=== PATIENT | female | born 1975 | race African-American/Black ===

== ENCOUNTER 2020-05-30 08:43 | Inpatient (IN) ==
[2020-05-30 09:22] LABS: Basophils # 0.1 10*3/uL (0.0-0.2); Basophils % 0.6 % (0.0-0.8); Eosinophils # 0.4 10*3/uL (0.0-0.87); Eosinophils % 4.4 % (0.00-10.9); Hematocrit 41.1 VOL% (35.7-47.0); Hemoglobin 13.6 GM/DL (12.0-16.0); Immature Granulocytes % 0.4 %; Immature Granulocytes Absolute 0.03 #; Lymphocytes # 1.5 10*3/uL (1.4-4.0); Lymphocytes % 18.3 % (21.3-54.2); Mean Corpuscular HGB Conc 33.1 GM/DL (32-36); Mean Corpuscular Volume 88.2 FL (87-102); Mean Platelet Volume 10.6 FL (9.6-12.0); Monocytes % 7.8 % (1.7-12.7); Neutrophils % 68.5 % (38.7-73.9); Platelet Count 366 T/CUMM (130-400); Red Blood Count 4.66 MC/CUMM (3.8-5.5); Red Cell Distribution Width 14.8 % (9.3-17.3)
[2020-05-30 09:47] LABS: Alanine Aminotransferase 23 U/L (13-56); Albumin 3.2 G/DL (3.4-5.0); Alkaline Phosphatase 106 U/L (45-117); Aspartate Amino Transferase 20 U/L (0-37); Bilirubin,Total < 0.39 MG/DL (0.2-1.0); Blood Urea Nitrogen 8 MG/DL (7-18); Calcium 9.1 MG/DL (8.5-10.1); Estimated Glom Filtration Rate 145 ML/MIN; Glucose 128 MG/DL (74-106); Osmolality,Calculated 276.5 MOS/KG (273-304); Total Protein 7.9 G/DL (6.4-8.3); Uric Acid 6.2 MG/DL (2.6-6.0)
[2020-05-30] MEDS ORDERED: HYDROmorphone 2 MG/1 ML VIAL IV STA (09:49)
[2020-05-30] MEDS ORDERED: ONDANSETRON 4 MG/2 ML VIAL IV STA (09:49)
[2020-05-30 10:32] LABS: Sedimentation Rate-Westergren 23 MM/HR (0-20)
[2020-05-30] MEDS ORDERED: MIDAZOLAM 2 MG/2 ML VIAL IV ONE (11:50)
[2020-05-30] MEDS ORDERED: fentaNYL 100 MCG/2 ML VIAL IV ONE (11:50)
[2020-05-30] MEDS ORDERED: ceFAZolin 1,000 MG in SYRINGE 1 EACH IV ONE (11:50)
[2020-05-30] MEDS ORDERED: HEPARIN/NACL 0.9% 2 UNITS/ML 2,000 ML IV ONE (12:30)
[2020-05-30] MEDS ORDERED: hydrALAZINE 20 MG/1 ML VIAL IV STA (13:02)
[2020-05-30] MEDS ORDERED: GLUCAGON 1 MG VIAL IM PRN (13:19)
[2020-05-30] MEDS ORDERED: ACETAMINOPHEN 325 MG TABLET PO PRN (13:19)
[2020-05-30] MEDS ORDERED: DEXTROSE 50% 25 GM/50 ML VIAL IV PRN (13:19)
[2020-05-30] MEDS ORDERED: DOCUSATE SODIUM 100 MG CAPSULE PO PRN (13:19)
[2020-05-30] MEDS ORDERED: NICOTINE 21 MG/24 HR PATCH TRANSDERM PRN (13:19)
[2020-05-30] MEDS ORDERED: PROPRANOLOL 20 MG TABLET PO PRN (13:23)
[2020-05-30 13:38] LABS: Bilirubin,Urine Negative (Negative); Blood, Urine Negative (Negative); Glucose,Urine (UA) Negative (Negative); Ketones,Urine Negative (Negative); Mucus,Urine Occasional /LPF (Occasional); Nitrite,Urine Negative (Negative); Protein,Urine Negative; RBC,Urine 1 /HPF (0-4); Squamous Epithelial Cell,Urine Occasional /HPF (0-10); Urine Appearance CLEAR (Clear); Urine Color Yellow (Yellow); Urine Specific Gravity > 1.060 (1.001-1.035); Urine Urobilinogen < 2.0 EU/DL (0.2-1.0); WBC,Urine <1 /HPF (0-6)
[2020-05-30] MEDS: hydrALAZINE 20 MG/1 ML VIAL IV PRN (13:45)
[2020-05-30] MEDS ORDERED: HEPARIN 1,000 UNIT/1 ML VIAL ONE (13:55)
[2020-05-30] MEDS ORDERED: HEPARIN 5,000 UNIT/1 ML VIAL ONE (13:56)
[2020-05-30] MEDS ORDERED: HEPARIN 1,000 UNIT/1 ML VIAL IV PRN (14:01)
[2020-05-30] MEDS ORDERED: ALTEPLASE 2 MG VIAL ONE (14:22)
[2020-05-30] MEDS: HYDROmorphone 2 MG/1 ML VIAL IV PRN ×6 (14:30→23:40)
[2020-05-30] MEDS ORDERED: hydrALAZINE 20 MG/1 ML VIAL IV ONE ×2 (14:57→15:41)
[2020-05-30] MEDS ORDERED: NITROGLYCERIN DRIP 50 MG/250 ML BOTTLE IV ONE (15:25)
[2020-05-30] MEDS ORDERED: ONDANSETRON 4 MG/2 ML VIAL IV PRN (15:29)
[2020-05-30] MEDS ORDERED: SODIUM CHLORIDE 0.45% 1,000 ML IV SCH (15:30)
[2020-05-30] MEDS ORDERED: ALTEPLASE 24 MG in SODIUM CHLORIDE 0.9% 480 ML INTRAARTER SCH (15:30)
[2020-05-30 16:44] LABS: Barbiturates Screen,Urine Negative (Negative); Benzodiazepines Screen,Urine Negative (Negative); Cannabinoid Screen,Urine Negative (Negative); Opiate Screen,Urine Positive (Negative); Phencyclidine Screen,Urine Negative (Negative)
[2020-05-30] MEDS: LACTATED RINGERS 1,000 ML IV SCH (16:45)
[2020-05-30] MEDS: HEPARIN DRIP 25,000 UNITS/500 ML PREMIX IV SCH (16:56)
[2020-05-30] MEDS: SODIUM CHLORIDE 0.45% 1,000 ML IV SCH ×2 (17:00→17:01)
[2020-05-30] MEDS: hydrALAZINE 20 MG/1 ML VIAL IV SCH ×3 (17:01→21:29)
[2020-05-30 17:10] LABS: INR 1.1; PT Patient Result 11.5 SECS (9.8-11.9); Partial Thromboplastin Time 29.3 SECS (23.9-33.8)
[2020-05-30] MEDS: cloNIDine 0.3 MG/24 HR PATCH TRANSDERM SCH (18:00)
[2020-05-30] MEDS ORDERED: LORazepam 1 MG TABLET PO PRN (18:34)
[2020-05-30] MEDS: niCARdipine INJ 25 MG in SODIUM CHLORIDE 0.9% 240 ML IV PRN ×3 (18:40→23:36)
[2020-05-30] MEDS: niCARdipine INJ 50 MG in SODIUM CHLORIDE 0.9% 480 ML IV PRN (23:39)
[2020-05-31] MEDS: ONDANSETRON 4 MG/2 ML VIAL IV PRN ×2 (02:44→21:20)
[2020-05-31] MEDS: HYDROmorphone 2 MG/1 ML VIAL IV PRN ×7 (02:44→21:46)
[2020-05-31] MEDS: niCARdipine INJ 50 MG in SODIUM CHLORIDE 0.9% 480 ML IV PRN ×4 (03:00→14:35)
[2020-05-31 03:49] LABS: Basophils % 0.1 % (0.0-0.8); Eosinophils % 0.1 % (0.00-10.9); Hematocrit 34.9 VOL% (35.7-47.0); Hemoglobin 11.6 GM/DL (12.0-16.0); Immature Granulocytes % 0.4 %; Immature Granulocytes Absolute 0.07 #; Lymphocytes # 0.8 10*3/uL (1.4-4.0); Lymphocytes % 5.2 % (21.3-54.2); Mean Corpuscular HGB Conc 33.2 GM/DL (32-36); Mean Corpuscular Volume 89.5 FL (87-102); Mean Platelet Volume 10.4 FL (9.6-12.0); Monocytes % 3.8 % (1.7-12.7); Neutrophils % 90.4 % (38.7-73.9); Platelet Count 274 T/CUMM (130-400); White Blood Count 15.6 T/CUMM (4-12)
[2020-05-31 03:59] LABS: INR 1.1; PT Patient Result 11.7 SECS (9.8-11.9); Partial Thromboplastin Time 30.5 SECS (23.9-33.8)
[2020-05-31 04:17] LABS: Calcium 8.5 MG/DL (8.5-10.1); Osmolality,Calculated 265.4 MOS/KG (273-304)
[2020-05-31 04:27] LABS: Calcium 8.4 MG/DL (8.5-10.1); Osmolality,Calculated 269.1 MOS/KG (273-304); Risk Ratio 5.83; Thyroid Stimulating Hormone 1.4 uIU/ml (0.358-3.74); VLDL CHOLESTEROL 38.2 MG/DL
[2020-05-31] MEDS: hydrALAZINE 20 MG/1 ML VIAL IV SCH ×4 (05:41→21:46)
[2020-05-31] MEDS: LACTATED RINGERS 1,000 ML IV SCH (05:43)
[2020-05-31] MEDS: THIAMINE 100 MG TABLET PO SCH (09:11)
[2020-05-31] MEDS: FOLIC ACID 1 MG TABLET PO SCH (09:11)
[2020-05-31] MEDS: carvediloL 6.25 MG TABLET PO SCH ×2 (09:58→21:22)
[2020-05-31] MEDS: SODIUM CHLORIDE 0.45% 1,000 ML IV SCH ×2 (13:24)
[2020-05-31] MEDS ORDERED: VANCOMYCIN INJ 1,000 MG in SODIUM CHLORIDE 0.9% 250 ML IV ONE (13:59)
[2020-05-31] MEDS: HEPARIN DRIP 25,000 UNITS/500 ML PREMIX IV SCH ×2 (14:04→17:38)
[2020-05-31] MEDS ORDERED: THROMBIN TOPICAL (RECOMBINANT) 5,000 UNIT VIAL TOP ONE (14:16)
[2020-05-31] MEDS ORDERED: HEPARIN 5,000 UNIT/1 ML VIAL ONE (14:17)
[2020-05-31] MEDS ORDERED: VANCOMYCIN 500 MG VIAL ONE (14:17)
[2020-05-31] MEDS ORDERED: TISSUE ADHESIVE 1 EACH APPLICATOR TOP ONE (15:39)
[2020-05-31] MEDS ORDERED: HYDROmorphone 2 MG/1 ML VIAL IV PRN (16:01)
[2020-05-31] MEDS ORDERED: LIDOCAINE 2% 5 ML VIAL ONE (16:10)
[2020-05-31] MEDS ORDERED: propofoL 200 MG/20 ML VIAL IV ONE (16:10)
[2020-05-31] MEDS ORDERED: PHENYLEPHRINE 1 MG/10 ML SYRINGE IV ONE (16:11)
[2020-05-31] MEDS ORDERED: HEPARIN 10,000 UNIT/10 ML VIAL ONE (16:11)
[2020-05-31] MEDS ORDERED: PHENYLEPHRINE 10 MG/1 ML VIAL IV ONE (16:11)
[2020-05-31] MEDS ORDERED: GLYCOPYRROLATE 0.4 MG/2 ML VIAL ONE (16:11)
[2020-05-31] MEDS ORDERED: SUCCINYLCHOLINE 200 MG/10 ML VIAL ONE (16:11)
[2020-05-31] MEDS ORDERED: SEVOFLURANE 1 UNIT/15 MINUTE INH ONE (16:11)
[2020-05-31] MEDS ORDERED: ONDANSETRON 4 MG/2 ML VIAL ONE (16:11)
[2020-05-31] MEDS ORDERED: MIDAZOLAM 2 MG/2 ML VIAL ONE (16:11)
[2020-05-31] MEDS ORDERED: fentaNYL 250 MCG/5 ML VIAL ONE (16:11)
[2020-05-31] MEDS ORDERED: ROCURONIUM 100 MG/10 ML VIAL IV ONE (16:12)
[2020-05-31] MEDS ORDERED: SODIUM CHLORIDE 0.9% 500 ML IV ONE (16:12)
[2020-05-31] MEDS ORDERED: SODIUM CHLORIDE 0.9% 100 ML IV ONE (16:12)
[2020-05-31] MEDS ORDERED: ONDANSETRON 4 MG/2 ML VIAL IV PRN (16:35)
[2020-05-31] MEDS: CLOPIDOGREL 75 MG TABLET PO SCH (17:33)
[2020-05-31] MEDS: ASPIRIN EC 81 MG TABLET PO SCH (17:33)
[2020-05-31 19:14] LABS: Partial Thromboplastin Time 21.1 SECS (23.9-33.8)
[2020-05-31] MEDS ORDERED: KETOROLAC 30 MG/1 ML VIAL IV ONE (20:41)
[2020-06-01] MEDS: HYDROmorphone 2 MG/1 ML VIAL IV PRN ×8 (00:15→23:20)
[2020-06-01] MEDS: ONDANSETRON 4 MG/2 ML VIAL IV PRN (02:30)
[2020-06-01] MEDS: hydrALAZINE 20 MG/1 ML VIAL IV SCH ×2 (04:04→10:38)
[2020-06-01 04:59] LABS: Basophils % 0.3 % (0.0-0.8); Eosinophils # 0.1 10*3/uL (0.0-0.87); Eosinophils % 0.5 % (0.00-10.9); Hematocrit 28.7 VOL% (35.7-47.0); Hemoglobin 9.8 GM/DL (12.0-16.0); Immature Granulocytes % 0.3 %; Immature Granulocytes Absolute 0.04 #; Lymphocytes # 0.9 10*3/uL (1.4-4.0); Lymphocytes % 7.6 % (21.3-54.2); Mean Corpuscular HGB Conc 34.1 GM/DL (32-36); Mean Corpuscular Volume 91.4 FL (87-102); Mean Platelet Volume 10.8 FL (9.6-12.0); Monocytes % 7.4 % (1.7-12.7); Neutrophils % 83.9 % (38.7-73.9); Platelet Count 223 T/CUMM (130-400); Red Blood Count 3.14 MC/CUMM (3.8-5.5); Red Cell Distribution Width 15.2 % (9.3-17.3); White Blood Count 11.6 T/CUMM (4-12)
[2020-06-01 05:07] LABS: Osmolality,Calculated 268.1 MOS/KG (273-304)
[2020-06-01 05:14] LABS: Partial Thromboplastin Time 27.9 SECS (23.9-33.8)
[2020-06-01] MEDS ORDERED: HYDROmorphone 2 MG/1 ML VIAL IV ONE (10:26)
[2020-06-01] MEDS: ASPIRIN EC 81 MG TABLET PO SCH (10:33)
[2020-06-01] MEDS: THIAMINE 100 MG TABLET PO SCH (10:33)
[2020-06-01] MEDS: carvediloL 6.25 MG TABLET PO SCH ×2 (10:33→21:12)
[2020-06-01] MEDS: CLOPIDOGREL 75 MG TABLET PO SCH (10:33)
[2020-06-01] MEDS: FOLIC ACID 1 MG TABLET PO SCH (10:33)
[2020-06-01] MEDS: PREGABALIN 50 MG CAPSULE PO SCH ×2 (10:34→21:13)
[2020-06-01] MEDS: ENOXAPARIN 60 MG/0.6 ML SYRINGE SUBCUT SCH (11:36)
[2020-06-01] MEDS: POTASSIUM CHLORIDE 20 MEQ TABLET PO PRN (15:25)
[2020-06-01 16:17] LABS: Partial Thromboplastin Time 29.1 SECS (23.9-33.8)
[2020-06-01] MEDS: INSULIN REGULAR 100 UNIT/ML SUBCUT SCH ×2 (17:53→21:20)
[2020-06-01] MEDS: POTASSIUM CHLORIDE 20 MEQ TABLET PO SCH (17:54)
[2020-06-02] MEDS: HYDROmorphone 2 MG/1 ML VIAL IV PRN ×6 (01:18→19:52)
[2020-06-02] MEDS: POTASSIUM CHLORIDE 20 MEQ TABLET PO PRN ×3 (01:53→05:25)
[2020-06-02 07:11] LABS: Basophils % 0.4 % (0.0-0.8); Eosinophils # 0.1 10*3/uL (0.0-0.87); Eosinophils % 1.4 % (0.00-10.9); Hematocrit 27.7 VOL% (35.7-47.0); Hemoglobin 9.3 GM/DL (12.0-16.0); Immature Granulocytes % 0.5 %; Immature Granulocytes Absolute 0.05 #; Lymphocytes % 10.9 % (21.3-54.2); Mean Corpuscular HGB Conc 33.6 GM/DL (32-36); Mean Corpuscular Volume 88.5 FL (87-102); Mean Platelet Volume 10.6 FL (9.6-12.0); Monocytes % 10.5 % (1.7-12.7); Neutrophils % 76.3 % (38.7-73.9); Platelet Count 229 T/CUMM (130-400); Red Blood Count 3.13 MC/CUMM (3.8-5.5); Red Cell Distribution Width 15.1 % (9.3-17.3); White Blood Count 9.1 T/CUMM (4-12)
[2020-06-02 07:20] LABS: Calcium 8.5 MG/DL (8.5-10.1); Osmolality,Calculated 267.1 MOS/KG (273-304)
[2020-06-02] MEDS: ASPIRIN EC 81 MG TABLET PO SCH (09:01)
[2020-06-02] MEDS: POTASSIUM CHLORIDE 20 MEQ TABLET PO SCH (09:01)
[2020-06-02] MEDS: FOLIC ACID 1 MG TABLET PO SCH (09:01)
[2020-06-02] MEDS: THIAMINE 100 MG TABLET PO SCH (09:01)
[2020-06-02] MEDS: PREGABALIN 50 MG CAPSULE PO SCH ×2 (09:01→21:50)
[2020-06-02] MEDS: carvediloL 6.25 MG TABLET PO SCH ×2 (09:01→21:51)
[2020-06-02] MEDS: INSULIN REGULAR 100 UNIT/ML SUBCUT SCH ×4 (09:02→21:52)
[2020-06-02] MEDS: ENOXAPARIN 60 MG/0.6 ML SYRINGE SUBCUT SCH (11:53)
[2020-06-02] MEDS: KETOROLAC 10 MG TABLET PO PRN (12:34)
[2020-06-02] MEDS: NICOTINE 21 MG/24 HR PATCH TRANSDERM SCH (16:08)
[2020-06-02] MEDS: SENNA 8.6 MG TABLET PO SCH (21:51)
[2020-06-02] MEDS: DOCUSATE SODIUM 100 MG CAPSULE PO SCH (21:51)
[2020-06-02] MEDS: POLYETHYLENE GLYCOL POWDER 17 GM PACK PO SCH (21:52)
[2020-06-02] MEDS: buPROPion SR 100 MG TABLET PO SCH (21:53)
[2020-06-03] MEDS: HYDROmorphone 2 MG/1 ML VIAL IV PRN ×5 (01:17→19:47)
[2020-06-03 06:10] LABS: Basophils # 0.1 10*3/uL (0.0-0.2); Basophils % 0.4 % (0.0-0.8); Eosinophils # 0.4 10*3/uL (0.0-0.87); Eosinophils % 3.1 % (0.00-10.9); Hematocrit 29.2 VOL% (35.7-47.0); Hemoglobin 9.6 GM/DL (12.0-16.0); Immature Granulocytes % 0.7 %; Immature Granulocytes Absolute 0.08 #; Lymphocytes # 1.1 10*3/uL (1.4-4.0); Lymphocytes % 9.2 % (21.3-54.2); Mean Corpuscular HGB Conc 32.9 GM/DL (32-36); Mean Platelet Volume 10.9 FL (9.6-12.0); Monocytes % 10.4 % (1.7-12.7); Neutrophils % 76.2 % (38.7-73.9); Platelet Count 258 T/CUMM (130-400); Red Blood Count 3.21 MC/CUMM (3.8-5.5); White Blood Count 11.6 T/CUMM (4-12)
[2020-06-03 06:33] LABS: Calcium 8.5 MG/DL (8.5-10.1); Osmolality,Calculated 265.4 MOS/KG (273-304)
[2020-06-03] MEDS: NICOTINE 21 MG/24 HR PATCH TRANSDERM SCH (09:24)
[2020-06-03] MEDS: THIAMINE 100 MG TABLET PO SCH (09:25)
[2020-06-03] MEDS: carvediloL 6.25 MG TABLET PO SCH ×2 (09:25→21:41)
[2020-06-03] MEDS: FOLIC ACID 1 MG TABLET PO SCH (09:25)
[2020-06-03] MEDS: POTASSIUM CHLORIDE 20 MEQ TABLET PO SCH (09:25)
[2020-06-03] MEDS: ASPIRIN EC 81 MG TABLET PO SCH (09:25)
[2020-06-03] MEDS: POLYETHYLENE GLYCOL POWDER 17 GM PACK PO SCH ×3 (09:25→21:40)
[2020-06-03] MEDS: DOCUSATE SODIUM 100 MG CAPSULE PO SCH ×2 (09:25→21:41)
[2020-06-03] MEDS: KETOROLAC 10 MG TABLET PO PRN (09:41)
[2020-06-03] MEDS: buPROPion SR 100 MG TABLET PO SCH ×2 (09:41→21:43)
[2020-06-03] MEDS: INSULIN REGULAR 100 UNIT/ML SUBCUT SCH ×4 (09:42→22:24)
[2020-06-03] MEDS: PREGABALIN 50 MG CAPSULE PO SCH ×2 (10:00→21:53)
[2020-06-03] MEDS: LINACLOTIDE 145 MCG CAPSULE PO SCH (10:01)
[2020-06-03] MEDS: ENOXAPARIN 60 MG/0.6 ML SYRINGE SUBCUT SCH (14:15)
[2020-06-03] MEDS: ALPRAZolam 0.25 MG TABLET PO PRN (14:16)
[2020-06-03] MEDS: oxyCODONE/ACETAMINOPHEN 5-325 MG TABLET PO PRN ×2 (16:05→21:53)
[2020-06-03] MEDS: cilostazoL 50 MG TABLET PO SCH (21:41)
[2020-06-03] MEDS: SENNA 8.6 MG TABLET PO SCH (21:41)
[2020-06-03] MEDS: APIXABAN 5 MG TABLET PO SCH (21:41)
[2020-06-03] MEDS: LACTULOSE 20 GM/30 ML UDCUP PO SCH (21:41)
[2020-06-04] MEDS: HYDROmorphone 2 MG/1 ML VIAL IV PRN ×4 (00:48→21:10)
[2020-06-04 06:03] LABS: Basophils # 0.1 10*3/uL (0.0-0.2); Basophils % 0.4 % (0.0-0.8); Eosinophils # 0.5 10*3/uL (0.0-0.87); Eosinophils % 3.9 % (0.00-10.9); Hematocrit 27.1 VOL% (35.7-47.0); Hemoglobin 8.9 GM/DL (12.0-16.0); Immature Granulocytes % 0.6 %; Immature Granulocytes Absolute 0.07 #; Lymphocytes # 1.4 10*3/uL (1.4-4.0); Lymphocytes % 11.4 % (21.3-54.2); Mean Corpuscular HGB Conc 32.8 GM/DL (32-36); Mean Corpuscular Volume 90.6 FL (87-102); Monocytes % 11.6 % (1.7-12.7); Neutrophils % 72.1 % (38.7-73.9); Platelet Count 290 T/CUMM (130-400); Red Blood Count 2.99 MC/CUMM (3.8-5.5); Red Cell Distribution Width 15.2 % (9.3-17.3); White Blood Count 12.4 T/CUMM (4-12)
[2020-06-04 06:21] LABS: Calcium 8.7 MG/DL (8.5-10.1); Osmolality,Calculated 266.2 MOS/KG (273-304)
[2020-06-04 09:36] LABS: Metanephrine, Free 0.92 nmol/L (<0.50); Normetanephrine, Free 2.3 nmol/L (<0.90)
[2020-06-04] MEDS: NICOTINE 21 MG/24 HR PATCH TRANSDERM SCH (09:45)
[2020-06-04] MEDS: POLYETHYLENE GLYCOL POWDER 17 GM PACK PO SCH ×3 (09:45→21:15)
[2020-06-04] MEDS: PREGABALIN 50 MG CAPSULE PO SCH ×2 (09:46→21:13)
[2020-06-04] MEDS: APIXABAN 5 MG TABLET PO SCH ×2 (09:46→21:13)
[2020-06-04] MEDS: ASPIRIN EC 81 MG TABLET PO SCH (09:46)
[2020-06-04] MEDS: POTASSIUM CHLORIDE 20 MEQ TABLET PO SCH (09:46)
[2020-06-04] MEDS: carvediloL 6.25 MG TABLET PO SCH ×2 (09:46→21:14)
[2020-06-04] MEDS: cilostazoL 50 MG TABLET PO SCH ×2 (09:46→21:14)
[2020-06-04] MEDS: LACTULOSE 20 GM/30 ML UDCUP PO SCH ×3 (09:47→21:14)
[2020-06-04] MEDS: DOCUSATE SODIUM 100 MG CAPSULE PO SCH ×2 (09:47→21:14)
[2020-06-04] MEDS: LINACLOTIDE 145 MCG CAPSULE PO SCH (09:48)
[2020-06-04] MEDS: INSULIN REGULAR 100 UNIT/ML SUBCUT SCH ×4 (09:48→21:14)
[2020-06-04] MEDS: buPROPion SR 100 MG TABLET PO SCH ×2 (11:55→21:13)
[2020-06-04] MEDS: FOLIC ACID 1 MG TABLET PO SCH (11:55)
[2020-06-04] MEDS: THIAMINE 100 MG TABLET PO SCH (11:55)
[2020-06-04] MEDS: ALPRAZolam 0.25 MG TABLET PO PRN (11:55)
[2020-06-04] MEDS: oxyCODONE/ACETAMINOPHEN 5-325 MG TABLET PO PRN (17:50)
[2020-06-04] MEDS: SENNA 8.6 MG TABLET PO SCH (21:15)
[2020-06-05] MEDS: oxyCODONE/ACETAMINOPHEN 5-325 MG TABLET PO PRN ×6 (03:01→23:05)
[2020-06-05 05:32] LABS: Basophils # 0.1 10*3/uL (0.0-0.2); Basophils % 0.4 % (0.0-0.8); Eosinophils # 0.4 10*3/uL (0.0-0.87); Eosinophils % 3.1 % (0.00-10.9); Hematocrit 23.9 VOL% (35.7-47.0); Immature Granulocytes % 0.9 %; Immature Granulocytes Absolute 0.11 #; Lymphocytes # 1.1 10*3/uL (1.4-4.0); Lymphocytes % 8.7 % (21.3-54.2); Mean Corpuscular HGB Conc 33.5 GM/DL (32-36); Mean Corpuscular Volume 88.5 FL (87-102); Mean Platelet Volume 10.4 FL (9.6-12.0); Monocytes % 13.1 % (1.7-12.7); Neutrophils % 73.8 % (38.7-73.9); Platelet Count 308 T/CUMM (130-400); Red Cell Distribution Width 14.9 % (9.3-17.3); White Blood Count 12.3 T/CUMM (4-12)
[2020-06-05 05:45] LABS: Calcium 8.5 MG/DL (8.5-10.1)
[2020-06-05] MEDS: LINACLOTIDE 145 MCG CAPSULE PO SCH (07:34)
[2020-06-05] MEDS: INSULIN REGULAR 100 UNIT/ML SUBCUT SCH ×4 (07:34→21:42)
[2020-06-05] MEDS: buPROPion SR 100 MG TABLET PO SCH ×2 (08:16→21:40)
[2020-06-05] MEDS: THIAMINE 100 MG TABLET PO SCH (08:16)
[2020-06-05] MEDS: carvediloL 6.25 MG TABLET PO SCH (08:16)
[2020-06-05] MEDS: NICOTINE 21 MG/24 HR PATCH TRANSDERM SCH (08:16)
[2020-06-05] MEDS: ASPIRIN EC 81 MG TABLET PO SCH (08:16)
[2020-06-05] MEDS: FOLIC ACID 1 MG TABLET PO SCH (08:17)
[2020-06-05] MEDS: PREGABALIN 50 MG CAPSULE PO SCH ×2 (08:17→21:41)
[2020-06-05] MEDS: cilostazoL 50 MG TABLET PO SCH ×2 (08:17→21:41)
[2020-06-05] MEDS: APIXABAN 5 MG TABLET PO SCH (08:17)
[2020-06-05] MEDS: POTASSIUM CHLORIDE 20 MEQ TABLET PO SCH (08:17)
[2020-06-05] MEDS: LACTULOSE 20 GM/30 ML UDCUP PO SCH ×3 (08:39→21:41)
[2020-06-05] MEDS: DOCUSATE SODIUM 100 MG CAPSULE PO SCH ×2 (08:39→21:41)
[2020-06-05] MEDS: POLYETHYLENE GLYCOL POWDER 17 GM PACK PO SCH ×3 (08:39→21:41)
[2020-06-05] MEDS ORDERED: SODIUM CHLORIDE 0.9% 1,000 ML IV PRN (16:01)
[2020-06-05] MEDS: ALPRAZolam 0.5 MG TABLET PO SCH ×2 (16:49→21:40)
[2020-06-05] MEDS: HYDROmorphone 2 MG/1 ML VIAL IV PRN (17:36)
[2020-06-05] MEDS: SENNA 8.6 MG TABLET PO SCH (21:41)
[2020-06-05] MEDS: carvediloL 3.125 MG TABLET PO SCH (21:42)
[2020-06-06 02:27] LABS: Hematocrit 30.2 VOL% (35.7-47.0); Hemoglobin 10.2 GM/DL (12.0-16.0)
[2020-06-06 02:41] LABS: Calcium 8.9 MG/DL (8.5-10.1); Osmolality,Calculated 261.7 MOS/KG (273-304)
[2020-06-06] MEDS: HYDROmorphone 2 MG/1 ML VIAL IV PRN ×6 (03:59→14:51)
[2020-06-06 06:39] LABS: Basophils # 0.1 10*3/uL (0.0-0.2); Basophils % 0.4 % (0.0-0.8); Eosinophils # 0.4 10*3/uL (0.0-0.87); Eosinophils % 2.9 % (0.00-10.9); Hematocrit 29.5 VOL% (35.7-47.0); Hemoglobin 9.9 GM/DL (12.0-16.0); Immature Granulocytes % 0.9 %; Immature Granulocytes Absolute 0.12 #; Lymphocytes % 7.9 % (21.3-54.2); Mean Corpuscular HGB Conc 33.6 GM/DL (32-36); Mean Corpuscular Volume 89.7 FL (87-102); Mean Platelet Volume 10.2 FL (9.6-12.0); Monocytes % 12.7 % (1.7-12.7); Neutrophils % 75.2 % (38.7-73.9); Platelet Count 352 T/CUMM (130-400); Red Blood Count 3.29 MC/CUMM (3.8-5.5); Red Cell Distribution Width 15.1 % (9.3-17.3)
[2020-06-06] MEDS: INSULIN REGULAR 100 UNIT/ML SUBCUT SCH ×4 (07:44→21:06)
[2020-06-06] MEDS ORDERED: VANCOMYCIN INJ 1,000 MG in SODIUM CHLORIDE 0.9% 250 ML IV ONE (08:15)
[2020-06-06] MEDS: oxyCODONE/ACETAMINOPHEN 5-325 MG TABLET PO PRN (09:43)
[2020-06-06] MEDS ORDERED: ROCURONIUM 50 MG/5 ML VIAL IV ONE (11:34)
[2020-06-06] MEDS ORDERED: DEXAMETHASONE 4 MG/1 ML VIAL ONE (11:34)
[2020-06-06] MEDS ORDERED: LIDOCAINE 2% 5 ML VIAL ONE (11:34)
[2020-06-06] MEDS ORDERED: SUCCINYLCHOLINE 200 MG/10 ML VIAL ONE (11:34)
[2020-06-06] MEDS ORDERED: propofoL 200 MG/20 ML VIAL IV ONE (11:34)
[2020-06-06] MEDS ORDERED: ONDANSETRON 4 MG/2 ML VIAL ONE (11:34)
[2020-06-06] MEDS ORDERED: fentaNYL 100 MCG/2 ML VIAL ONE ×2 (11:35→12:08)
[2020-06-06] MEDS ORDERED: MIDAZOLAM 2 MG/2 ML VIAL ONE (11:35)
[2020-06-06] MEDS ORDERED: NEOSTIGMINE 10 MG/10 ML VIAL ONE (13:34)
[2020-06-06] MEDS ORDERED: GLYCOPYRROLATE 0.4 MG/2 ML VIAL ONE (13:34)
[2020-06-06] MEDS ORDERED: SEVOFLURANE 1 UNIT/15 MINUTE INH ONE (13:35)
[2020-06-06] MEDS ORDERED: ACETAMINOPHEN 1,000 MG/100 ML VIAL IV ONE (13:41)
[2020-06-06] MEDS ORDERED: DEXTROSE 50% 25 GM/50 ML VIAL IV PRN (14:06)
[2020-06-06] MEDS ORDERED: NALOXONE 0.4 MG/ML VIAL IV PRN (14:06)
[2020-06-06] MEDS ORDERED: GLUCAGON 1 MG VIAL IM PRN (14:06)
[2020-06-06] MEDS ORDERED: KETOROLAC 30 MG/1 ML VIAL ONE (14:08)
[2020-06-06] MEDS: hydrALAZINE 20 MG/1 ML VIAL IV PRN (14:20)
[2020-06-06] MEDS ORDERED: ONDANSETRON 4 MG/2 ML VIAL IV PRN (14:27)
[2020-06-06] MEDS ORDERED: HYDROmorphone 2 MG/1 ML VIAL ONE (14:28)
[2020-06-06] MEDS: HYDROmorphone PCA 30 MG/30 ML SYRINGE IV SCH (14:53)
[2020-06-06] MEDS: LINACLOTIDE 145 MCG CAPSULE PO SCH (15:58)
[2020-06-06] MEDS: ASPIRIN EC 81 MG TABLET PO SCH (15:58)
[2020-06-06] MEDS: PREGABALIN 50 MG CAPSULE PO SCH ×2 (15:59→20:46)
[2020-06-06] MEDS: carvediloL 3.125 MG TABLET PO SCH ×2 (15:59→20:46)
[2020-06-06] MEDS: FOLIC ACID 1 MG TABLET PO SCH (15:59)
[2020-06-06] MEDS: POTASSIUM CHLORIDE 20 MEQ TABLET PO SCH (15:59)
[2020-06-06] MEDS: POLYETHYLENE GLYCOL POWDER 17 GM PACK PO SCH ×3 (15:59→20:47)
[2020-06-06] MEDS: DOCUSATE SODIUM 100 MG CAPSULE PO SCH ×2 (15:59→20:46)
[2020-06-06] MEDS: LACTULOSE 20 GM/30 ML UDCUP PO SCH ×2 (15:59→20:46)
[2020-06-06] MEDS: ALPRAZolam 0.5 MG TABLET PO SCH ×3 (16:00→20:46)
[2020-06-06] MEDS: buPROPion SR 100 MG TABLET PO SCH ×2 (16:00→20:46)
[2020-06-06] MEDS: cilostazoL 50 MG TABLET PO SCH ×2 (16:00→20:46)
[2020-06-06] MEDS: THIAMINE 100 MG TABLET PO SCH (16:00)
[2020-06-06] MEDS: cloNIDine 0.3 MG/24 HR PATCH TRANSDERM SCH (18:23)
[2020-06-06] MEDS: LACTATED RINGERS 1,000 ML IV SCH (18:24)
[2020-06-06] MEDS: NICOTINE 21 MG/24 HR PATCH TRANSDERM SCH (18:24)
[2020-06-06] MEDS: ALVIMOPAN 12 MG CAPSULE PO SCH (20:46)
[2020-06-06] MEDS: SENNA 8.6 MG TABLET PO SCH (20:47)
[2020-06-07 05:32] LABS: Basophils % 0.2 % (0.0-0.8); Eosinophils % 0.2 % (0.00-10.9); Hematocrit 27.6 VOL% (35.7-47.0); Immature Granulocytes Absolute 0.13 #; Lymphocytes # 0.8 10*3/uL (1.4-4.0); Lymphocytes % 5.8 % (21.3-54.2); Mean Corpuscular HGB Conc 32.6 GM/DL (32-36); Mean Platelet Volume 10.2 FL (9.6-12.0); Monocytes % 10.2 % (1.7-12.7); Neutrophils % 82.6 % (38.7-73.9); Platelet Count 395 T/CUMM (130-400); Red Cell Distribution Width 15.1 % (9.3-17.3); White Blood Count 13.2 T/CUMM (4-12)
[2020-06-07 05:52] LABS: Calcium 8.8 MG/DL (8.5-10.1); Osmolality,Calculated 267.4 MOS/KG (273-304)
[2020-06-07] MEDS: INSULIN REGULAR 100 UNIT/ML SUBCUT SCH ×4 (07:44→21:16)
[2020-06-07] MEDS: NICOTINE 21 MG/24 HR PATCH TRANSDERM SCH (08:57)
[2020-06-07] MEDS: PREGABALIN 50 MG CAPSULE PO SCH (08:57)
[2020-06-07] MEDS: ALPRAZolam 0.5 MG TABLET PO SCH ×2 (08:58→16:14)
[2020-06-07] MEDS: ENOXAPARIN 40 MG/0.4 ML SYRINGE SUBCUT SCH (08:58)
[2020-06-07] MEDS: FOLIC ACID 1 MG TABLET PO SCH (08:59)
[2020-06-07] MEDS: ASPIRIN EC 81 MG TABLET PO SCH (08:59)
[2020-06-07] MEDS: cilostazoL 50 MG TABLET PO SCH ×2 (08:59→20:56)
[2020-06-07] MEDS: POTASSIUM CHLORIDE 20 MEQ TABLET PO SCH (08:59)
[2020-06-07] MEDS: DOCUSATE SODIUM 100 MG CAPSULE PO SCH ×2 (08:59→20:55)
[2020-06-07] MEDS: carvediloL 3.125 MG TABLET PO SCH ×2 (09:00→20:55)
[2020-06-07] MEDS: ALVIMOPAN 12 MG CAPSULE PO SCH ×2 (09:00→20:55)
[2020-06-07] MEDS: THIAMINE 100 MG TABLET PO SCH (09:00)
[2020-06-07] MEDS: PANTOPRAZOLE 40 MG TABLET PO SCH (09:00)
[2020-06-07] MEDS: buPROPion SR 100 MG TABLET PO SCH ×2 (09:01→20:55)
[2020-06-07] MEDS: POLYETHYLENE GLYCOL POWDER 17 GM PACK PO SCH ×3 (09:18→21:15)
[2020-06-07] MEDS: LACTULOSE 20 GM/30 ML UDCUP PO SCH ×3 (09:18→21:15)
[2020-06-07] MEDS: LINACLOTIDE 145 MCG CAPSULE PO SCH (09:18)
[2020-06-07] MEDS: LACTATED RINGERS 1,000 ML IV SCH ×2 (09:18→09:19)
[2020-06-07] MEDS ORDERED: buPROPion SR 150 MG TABLET PO SCH (10:35)
[2020-06-07] MEDS: HYDROmorphone PCA 30 MG/30 ML SYRINGE IV SCH (15:46)
[2020-06-07] MEDS: PREGABALIN 25 MG CAPSULE PO SCH (20:55)
[2020-06-07] MEDS: ALPRAZolam 0.25 MG TABLET PO SCH (20:56)
[2020-06-07] MEDS: SENNA 8.6 MG TABLET PO SCH (21:16)
[2020-06-08] MEDS: ALPRAZolam 0.25 MG TABLET PO SCH ×4 (03:51→21:40)
[2020-06-08 06:46] LABS: Basophils # 0.1 10*3/uL (0.0-0.2); Basophils % 0.5 % (0.0-0.8); Eosinophils # 0.6 10*3/uL (0.0-0.87); Eosinophils % 5.3 % (0.00-10.9); Hematocrit 27.9 VOL% (35.7-47.0); Hemoglobin 9.2 GM/DL (12.0-16.0); Immature Granulocytes % 0.7 %; Immature Granulocytes Absolute 0.07 #; Lymphocytes # 1.5 10*3/uL (1.4-4.0); Lymphocytes % 14.7 % (21.3-54.2); Mean Corpuscular Volume 90.9 FL (87-102); Mean Platelet Volume 10.3 FL (9.6-12.0); Monocytes % 11.7 % (1.7-12.7); Neutrophils % 67.1 % (38.7-73.9); Platelet Count 451 T/CUMM (130-400); Red Blood Count 3.07 MC/CUMM (3.8-5.5); Red Cell Distribution Width 15.6 % (9.3-17.3); White Blood Count 10.3 T/CUMM (4-12)
[2020-06-08 06:59] LABS: Calcium 8.6 MG/DL (8.5-10.1); Osmolality,Calculated 267.2 MOS/KG (273-304)
[2020-06-08] MEDS: INSULIN REGULAR 100 UNIT/ML SUBCUT SCH ×3 (09:14→16:22)
[2020-06-08] MEDS: POLYETHYLENE GLYCOL POWDER 17 GM PACK PO SCH (09:23)
[2020-06-08] MEDS: NICOTINE 21 MG/24 HR PATCH TRANSDERM SCH (09:23)
[2020-06-08] MEDS: ENOXAPARIN 40 MG/0.4 ML SYRINGE SUBCUT SCH (09:24)
[2020-06-08] MEDS: LACTATED RINGERS 1,000 ML IV SCH (09:24)
[2020-06-08] MEDS: LINACLOTIDE 145 MCG CAPSULE PO SCH (09:25)
[2020-06-08] MEDS: POTASSIUM CHLORIDE 20 MEQ TABLET PO SCH (09:26)
[2020-06-08] MEDS: ALVIMOPAN 12 MG CAPSULE PO SCH ×2 (09:26→21:41)
[2020-06-08] MEDS: ASPIRIN EC 81 MG TABLET PO SCH (09:26)
[2020-06-08] MEDS: LACTULOSE 20 GM/30 ML UDCUP PO SCH (09:27)
[2020-06-08] MEDS: DOCUSATE SODIUM 100 MG CAPSULE PO SCH ×2 (09:27→21:41)
[2020-06-08] MEDS: cilostazoL 50 MG TABLET PO SCH ×2 (09:28→21:42)
[2020-06-08] MEDS: carvediloL 3.125 MG TABLET PO SCH ×2 (09:29→21:42)
[2020-06-08] MEDS: PANTOPRAZOLE 40 MG TABLET PO SCH (09:29)
[2020-06-08] MEDS: buPROPion SR 100 MG TABLET PO SCH ×2 (09:29→21:41)
[2020-06-08] MEDS: FOLIC ACID 1 MG TABLET PO SCH (09:29)
[2020-06-08] MEDS: THIAMINE 100 MG TABLET PO SCH (09:29)
[2020-06-08] MEDS ORDERED: POLYETHYLENE GLYCOL POWDER 17 GM PACK PO PRN (14:29)
[2020-06-08] MEDS ORDERED: LACTULOSE 20 GM/30 ML UDCUP PO PRN (14:29)
[2020-06-08] MEDS: HYDROmorphone PCA 30 MG/30 ML SYRINGE IV SCH ×2 (20:23→21:30)
[2020-06-08] MEDS: PREGABALIN 25 MG CAPSULE PO SCH (21:41)
[2020-06-09] MEDS: SENNA 8.6 MG TABLET PO SCH ×2 (04:21→22:26)
[2020-06-09] MEDS: INSULIN REGULAR 100 UNIT/ML SUBCUT SCH ×5 (04:21→22:25)
[2020-06-09] MEDS: buPROPion SR 100 MG TABLET PO SCH ×2 (11:09→22:27)
[2020-06-09] MEDS: ALVIMOPAN 12 MG CAPSULE PO SCH ×2 (11:09→22:25)
[2020-06-09] MEDS: DOCUSATE SODIUM 100 MG CAPSULE PO SCH ×2 (11:09→22:24)
[2020-06-09] MEDS: ALPRAZolam 0.25 MG TABLET PO SCH ×3 (11:09→22:27)
[2020-06-09] MEDS: FOLIC ACID 1 MG TABLET PO SCH (11:09)
[2020-06-09] MEDS: ASPIRIN EC 81 MG TABLET PO SCH (11:09)
[2020-06-09] MEDS: cilostazoL 50 MG TABLET PO SCH ×2 (11:10→22:26)
[2020-06-09] MEDS: PANTOPRAZOLE 40 MG TABLET PO SCH (11:10)
[2020-06-09] MEDS: carvediloL 3.125 MG TABLET PO SCH ×2 (11:10→22:24)
[2020-06-09] MEDS: THIAMINE 100 MG TABLET PO SCH (11:10)
[2020-06-09] MEDS: POTASSIUM CHLORIDE 20 MEQ TABLET PO SCH (11:10)
[2020-06-09] MEDS: ENOXAPARIN 40 MG/0.4 ML SYRINGE SUBCUT SCH (11:10)
[2020-06-09] MEDS: NICOTINE 21 MG/24 HR PATCH TRANSDERM SCH (11:11)
[2020-06-09] MEDS: LACTATED RINGERS 1,000 ML IV SCH (11:11)
[2020-06-09] MEDS: LINACLOTIDE 145 MCG CAPSULE PO SCH (11:12)
[2020-06-09] MEDS: PIPERACILLIN/TAZOBACTAM 3,375 MG in SODIUM CHLORIDE 0.9% 100 ML IV SCH (16:33)
[2020-06-09] MEDS: HYDROmorphone PCA 30 MG/30 ML SYRINGE IV SCH (19:33)
[2020-06-09] MEDS: CLINDAMYCIN INJ 300 MG in PREMIX 1 EACH IV SCH (22:23)
[2020-06-09] MEDS: PREGABALIN 50 MG CAPSULE PO SCH (22:26)
[2020-06-10] MEDS: PIPERACILLIN/TAZOBACTAM 3,375 MG in SODIUM CHLORIDE 0.9% 100 ML IV SCH ×4 (00:30→23:37)
[2020-06-10] MEDS: CLINDAMYCIN INJ 300 MG in PREMIX 1 EACH IV SCH (05:02)
[2020-06-10 05:35] LABS: Basophils % 0.2 % (0.0-0.8); Eosinophils # 0.5 10*3/uL (0.0-0.87); Eosinophils % 3.2 % (0.00-10.9); Immature Granulocytes % 1.1 %; Immature Granulocytes Absolute 0.18 #; Lymphocytes # 1.2 10*3/uL (1.4-4.0); Lymphocytes % 7.5 % (21.3-54.2); Mean Corpuscular HGB Conc 33.3 GM/DL (32-36); Mean Corpuscular Volume 88.8 FL (87-102); Mean Platelet Volume 9.6 FL (9.6-12.0); NRBC # 0.02 10*3/uL; Platelet Count 503 T/CUMM (130-400); Red Blood Count 3.04 MC/CUMM (3.8-5.5); Red Cell Distribution Width 15.6 % (9.3-17.3); White Blood Count 16.4 T/CUMM (4-12)
[2020-06-10 05:55] LABS: Calcium 8.9 MG/DL (8.5-10.1); Osmolality,Calculated 264.4 MOS/KG (273-304)
[2020-06-10] MEDS: INSULIN REGULAR 100 UNIT/ML SUBCUT SCH ×4 (07:57→22:16)
[2020-06-10] MEDS: LINACLOTIDE 145 MCG CAPSULE PO SCH (09:28)
[2020-06-10] MEDS: PANTOPRAZOLE 40 MG TABLET PO SCH (09:28)
[2020-06-10] MEDS: ALVIMOPAN 12 MG CAPSULE PO SCH ×2 (09:28→21:12)
[2020-06-10] MEDS: NICOTINE 21 MG/24 HR PATCH TRANSDERM SCH (09:28)
[2020-06-10] MEDS: ENOXAPARIN 40 MG/0.4 ML SYRINGE SUBCUT SCH (09:28)
[2020-06-10] MEDS: buPROPion SR 100 MG TABLET PO SCH ×2 (09:28→21:14)
[2020-06-10] MEDS: carvediloL 3.125 MG TABLET PO SCH ×2 (09:29→21:13)
[2020-06-10] MEDS: ALPRAZolam 0.25 MG TABLET PO SCH ×3 (09:29→21:13)
[2020-06-10] MEDS: ASPIRIN EC 81 MG TABLET PO SCH (09:29)
[2020-06-10] MEDS: FOLIC ACID 1 MG TABLET PO SCH (09:29)
[2020-06-10] MEDS: POTASSIUM CHLORIDE 20 MEQ TABLET PO SCH (09:30)
[2020-06-10] MEDS: THIAMINE 100 MG TABLET PO SCH (09:30)
[2020-06-10] MEDS: cilostazoL 50 MG TABLET PO SCH ×2 (09:30→21:14)
[2020-06-10] MEDS: DOCUSATE SODIUM 100 MG CAPSULE PO SCH ×2 (09:30→22:16)
[2020-06-10] MEDS: LACTATED RINGERS 1,000 ML IV SCH (11:49)
[2020-06-10] MEDS: GABAPENTIN 100 MG CAPSULE PO SCH ×2 (15:19→21:14)
[2020-06-10] MEDS ORDERED: ZALEPLON 5 MG CAPSULE PO PRN (20:58)
[2020-06-10] MEDS: PREGABALIN 50 MG CAPSULE PO SCH (21:12)
[2020-06-10] MEDS: SENNA 8.6 MG TABLET PO SCH (22:17)
[2020-06-11 06:30] LABS: Calcium 8.8 MG/DL (8.5-10.1); Osmolality,Calculated 263.4 MOS/KG (273-304)
[2020-06-11] MEDS: INSULIN REGULAR 100 UNIT/ML SUBCUT SCH ×2 (08:34→11:25)
[2020-06-11] MEDS: PIPERACILLIN/TAZOBACTAM 3,375 MG in SODIUM CHLORIDE 0.9% 100 ML IV SCH (09:11)
[2020-06-11] MEDS: ENOXAPARIN 40 MG/0.4 ML SYRINGE SUBCUT SCH (09:11)
[2020-06-11] MEDS: NICOTINE 21 MG/24 HR PATCH TRANSDERM SCH (09:12)
[2020-06-11] MEDS: ASPIRIN EC 81 MG TABLET PO SCH (09:18)
[2020-06-11] MEDS: PANTOPRAZOLE 40 MG TABLET PO SCH (09:19)
[2020-06-11] MEDS: POTASSIUM CHLORIDE 20 MEQ TABLET PO SCH (09:19)
[2020-06-11] MEDS: GABAPENTIN 100 MG CAPSULE PO SCH ×2 (09:19→15:10)
[2020-06-11] MEDS: FOLIC ACID 1 MG TABLET PO SCH (09:19)
[2020-06-11] MEDS: buPROPion SR 100 MG TABLET PO SCH (09:20)
[2020-06-11] MEDS: ALPRAZolam 0.25 MG TABLET PO SCH ×2 (09:20→15:10)
[2020-06-11] MEDS: carvediloL 3.125 MG TABLET PO SCH (09:20)
[2020-06-11] MEDS: cilostazoL 50 MG TABLET PO SCH (09:20)
[2020-06-11] MEDS: THIAMINE 100 MG TABLET PO SCH (09:20)
[2020-06-11] MEDS: LINACLOTIDE 145 MCG CAPSULE PO SCH (09:20)
[2020-06-11] MEDS: DOCUSATE SODIUM 100 MG CAPSULE PO SCH (09:20)
[2020-06-11] MEDS: ALVIMOPAN 12 MG CAPSULE PO SCH (09:21)
[2020-06-11] MEDS ORDERED: carvediloL 6.25 MG TABLET PO SCH (09:30)
[2020-06-11 11:26] VITALS: BP 150/106
[2020-06-11] MEDS ORDERED: HYDROmorphone 2 MG/1 ML VIAL IM ONE (14:00)
== END 2020-06-11 15:10 | DRG 271 ==
LOC: N.ED 08:43 → N.EDINP 12:07 → SUATTDRO 12:07 → N.EDINP 15:55 → N.CC 16:14 → N.3E 06-01 16:15
PROVIDERS: ADMIT Internal Medicine; ATTEND Family Medicine